=== PATIENT | female | born 1950 | race Caucasian/White ===

== ENCOUNTER 2018-06-01 05:25 | Day surgery (SDC) | payer MEDICARE, OTHER, SELFPAY ==
[2018-06-01] VITALS (9 sets, daily range): BP systolic 105–129; BP diastolic 53–81; PULSE 60–80; RESP 14–18; TEMP 36–36.8; O2SAT 92–100; BMI 31.2
--- NOTE | 2018-06-01 05:34 | EKG12_ITS ---
Test Reason : PRE OP Blood Pressure : / mmHG Vent. Rate : 081 BPM Atrial Rate : 081 BPM P-R Int : 144 ms QRS Dur : 084 ms QT Int : 364 ms P-R-T Axes : 079 037 049 degrees QTc Int : 422 ms Normal sinus rhythm Normal ECG Confirmed by MALIK VILLELA, LOUISE ([id number]), editor magazine ARETHA CARROLL ([id number]) on 06/02/2018 2:33:16 PM Referred By: Tristan Carlson Confirmed By:LOUISE GAN MD
--- NOTE | 2018-06-01 07:15 | RAD_ITS ---
STUDY: X-RAY - LEFT CLAVICLE FLUOROSCOPY TIME (if supplied): (00: 19) minutes/seconds TECHNIQUE: Intraoperative fluoroscopy. 3 intraoperative views. COMPARISON: None. FINDINGS: Anatomic alignment at the fracture site. Normal acromioclavicular articulation. Normal visualized sternoclavicular articulation. Normal visualized pulmonary apex. RAD/Clavicle IMPRESSION: Internal fixation of left clavicle fracture in good alignment. Electronically Signed: Xenia Ch MD at 12:26 EDT Tel , Service support ,
[2018-06-01] MEDS: Cefazolin 2 GM in 0.9% Normal Saline 100 ML IV (07:25)
--- NOTE | 2018-06-01 08:43 | DCINST_ITS ---
Discharge Diet: No Restrictions Discharge Activity: May Not Drive May shower in (days): 1 Ice area for (Minutes): 20 - Ice area for 20 minutes each hour while awake Call your doctor if your incision/area has: Continuous Slow Oozing, Sudden Increased Bleeding, Increased Pain/ Swelling, Increased Redness, Foul Smelling Discharge Call your doctor if you observe: Fever of 101 or Higher, Coldness, Increased Pain, Numbness or Tingling, Change in Color Cleanse incision/area with: - - do not remove adherent dressing, may shower if it is sealed Allergies/Adverse Reactions: Allergies No Known Allergies Allergy (Verified 05/29/18 15:25) Medications to take at Discharge Cholecalciferol (Vitamin D3) [Vitamin D3] 1,000 unit PO DAILY 05/29/18 Cyanocobalamin [Vitamin B12] 250 mcg PO DAILY@0800 05/29/18 Meloxicam [Mobic] 7.5 mg PO DAILY 05/29/18 Multivitamin [Multiple Vitamins] 1 each PO DAILY 05/29/18 Naproxen Sodium [Aleve] 220 mg PO Q8H PRN PRN 05/29/18 Test Results: Test results from this visit will be discussed in further detail at your follow- up appointment, if applicable. Please Follow Up With: Tristan Carlson DO When: as scheduled
--- NOTE | 2018-06-01 08:43 | PCM.OPRPT ---
Report of Operation Date of Procedure: 06/01/18 Pre-Operative Diagnosis: Comminuted displaced left distal clavicle fracture Post-Operative Diagnosis: Same Surgery/Procedure Performed:: Open reduction with internal fixation of left distal clavicle fracture Description of Surgical Findings:: Displaced clavicle fracture poor bone quality distally humid system operator: Mikal Bullock Type of Anesthesia:: General Anesthesiologist: Jose Up Estimated Blood Loss (mL): 25 Fluids Replaced: See anesthesia report Description of Procedure: Implants: Arthrex distal clavicle plate with Arthrex distal clavicle tight rope Surgical indications: Patient is a 67-year-old female who suffered a displaced distal clavicle fracture. She has elected to undergo the above procedure at my recommendation. Please see history and physical Procedure description: Jody was greeted in the preoperative area. Her left upper tremor is marked with surgical marker. Preoperative antibiotics administered she was then taken a or Suite 1 the stable condition. After adequate anesthesia was obtained and airway secured she was placed in standard beachchair position all bony prominences were well-padded. Patient's arm was then prepped and draped in usual sterile fashion. Surgical times performed surgery was commenced. Biplanar fluoroscopic imaging was utilized in order to identify the fracture site. An incision was then planned and carried out the superior aspect of the clavicle. Dissection was then carried length of the incision exposing the clavicle. Patient had significant inferior displacement of the distal aspect as there is some disruption of the coracoclavicular ligaments. The fracture was developed and was identified to have a oblique type fracture with some comminution of the distal portion. I then provisionally placed a plate on the proximal aspect of the clavicle with a 3.5 mm bicortical screw and with some downward pressure was able to reduce this to the distal clavicle portion. Provisional fixation of the distal clavicle was then performed with a cancellus 3 mm screw. Using biplanar fluoroscopic imaging I then drilled through the plate and the proximal clavicle as well as bicortically through the coracoid in order to insert a clavicle tight rope. This engage the undersurface of the coracoid and then was able to essentially approximate the clavicle to the coracoid reconstructing or securing the coracoclavicular ligaments as well as assisting in maintaining the reduction. Once this was achieved I then placed a second bicortical screw in the proximal aspect of the clavicle followed by 4 locking screws in the distal clavicle. One additional screw was then placed in the proximal clavicle. Once this was complete irrigation was performed and final imaging was obtained. Very happy with the reduction as well as the security of the fracture. This point the wound was then closed in layers. A well-padded nonadherent dressing was then applied. Physician camp assistant was integral in all portions of this procedure. They assisted with positioning the patient, draping the extremity, holding retractors, closing the wound, and applying the dressing. This was all done under my direct supervision. The physician camp assistant was essential for a successful, efficient surgery. Postoperatively: We will allow gentle range of motion of the shoulder as tolerated below shoulder level. Aggressive range of motion to begin at 4 weeks as tolerated followed by isometrics and progressive resistance exercises between 6 and 8 weeks - Complications None known - Admit VTE Documentation VTE Present on Admission: Yes VTE Mechan Device Prophylaxis: SCD's VTE Pharm Prophylaxis ordered?: No Reason prophylaxis not ordered:: Procedure Not Indicated
--- NOTE | 2018-06-01 08:50 | OP.PCM_ITS ---
Report of Operation Date of Procedure: 06/01/18 Pre-Operative Diagnosis: Comminuted displaced left distal clavicle fracture Post-Operative Diagnosis: Same Surgery/Procedure Performed:: Open reduction with internal fixation of left distal clavicle fracture Description of Surgical Findings:: Displaced clavicle fracture poor bone quality distally medical physiologist: Mikal Bullock Type of Anesthesia:: General Anesthesiologist: Jose Up Estimated Blood Loss (mL): 25 Fluids Replaced: See anesthesia report Description of Procedure: Implants: Arthrex distal clavicle plate with Arthrex distal clavicle tight rope Surgical indications: Patient is a 67-year-old female who suffered a displaced distal clavicle fracture. She has elected to undergo the above procedure at my recommendation. Please see history and physical Procedure description: Jody was greeted in the preoperative area. Her left upper tremor is marked with surgical marker. Preoperative antibiotics administered she was then taken a or Suite 1 the stable condition. After adequate anesthesia was obtained and airway secured she was placed in standard beachchair position all bony prominences were well-padded. Patient's arm was then prepped and draped in usual sterile fashion. Surgical times performed surgery was commenced. Biplanar fluoroscopic imaging was utilized in order to identify the fracture site. An incision was then planned and carried out the superior aspect of the clavicle. Dissection was then carried length of the incision exposing the clavicle. Patient had significant inferior displacement of the distal aspect as there is some disruption of the coracoclavicular ligaments. The fracture was developed and was identified to have a oblique type fracture with some comminution of the distal portion. I then provisionally placed a plate on the proximal aspect of the clavicle with a 3.5 mm bicortical screw and with some downward pressure was able to reduce this to the distal clavicle portion. Provisional fixation of the distal clavicle was then performed with a cancellus 3 mm screw. Using biplanar fluoroscopic imaging I then drilled through the plate and the proximal clavicle as well as bicortically through the coracoid in order to insert a clavicle tight rope. This engage the undersurface of the coracoid and then was able to essentially approximate the clavicle to the coracoid reconstructing or securing the coracoclavicular ligaments as well as assisting in maintaining the reduction. Once this was achieved I then placed a second bicortical screw in the proximal aspect of the clavicle followed by 4 locking screws in the distal clavicle. One additional screw was then placed in the proximal clavicle. Once this was complete irrigation was performed and final imaging was obtained. Very happy with the reduction as well as the security of the fracture. This point the wound was then closed in layers. A well-padded nonadherent dressing was then applied. Physician mobile unit assistant was integral in all portions of this procedure. They assisted with positioning the patient, draping the extremity, holding retractors , closing the wound, and applying the dressing. This was all done under my direct supervision. The physician mobile unit assistant was essential for a successful, efficient surgery. Postoperatively: We will allow gentle range of motion of the shoulder as tolerated below shoulder level. Aggressive range of motion to begin at 4 weeks as tolerated followed by isometrics and progressive resistance exercises between 6 and 8 weeks - Complications None known - Admit VTE Documentation VTE Present on Admission: Yes VTE Mechan Device Prophylaxis: SCD's VTE Pharm Prophylaxis ordered?: No Reason prophylaxis not ordered:: Procedure Not Indicated
== END 2018-06-01 12:21 | disposition home or self-care (01) ==
LOC: SDC 05:27 → AC 05:30
PROVIDERS: Family Provider Family Medicine; PCP Family Medicine; Visit Provider Orthopaedic Surgery
PROC: (CPT 29805; principal; 2018-06-01 06:55)
DX: S42.022A Displaced fracture of shaft of left clavicle, initial encounter for closed fracture (principal); S22.42XA Multiple fractures of ribs, left side, initial encounter for closed fracture; W10.9XXA Fall (on) (from) unspecified stairs and steps, initial encounter; Y93.9 Activity, unspecified; Y92.009 Unspecified place in unspecified non-institutional (private) residence as the place of occurrence of the external cause; Y99.9 Unspecified external cause status; E66.3 Overweight; Z68.30 Body mass index [BMI] 30.0-30.9, adult
CPT/HCPCS: 00450; 23515; 73000; 76000; 93005; C1713; J7120; J2405

== ENCOUNTER → 2020-04-25 | Outpatient (CLI) | payer MEDICARE, OTHER, SELFPAY ==
[2018-06-01 05:55] VITALS: BMI 31.2
--- NOTE | 2020-04-25 12:36 | RAD_ITS ---
STUDY: X-RAY - THORACIC SPINE REASON FOR EXAM: Female, 69 years old. Pain TECHNIQUE: AP and lateral view(s) of the thoracic spine were obtained. COMPARISON: None. FINDINGS: Normal kyphosis of the thoracic spine. There is no substantial scoliosis. There is demineralization of the thoracic spine with mild endplate spondylosis. There is multilevel disc space narrowing of the thoracic spine. The soft tissue structures are unremarkable. RAD/Thoracic Spine 2 Views IMPRESSION: Multilevel disc space narrowing and mild spondylosis. Electronically Signed: Matias Boateng, at 15:47 EDT , Service support ,
--- NOTE | 2020-04-25 12:36 | RAD_ITS ---
STUDY: X-RAY - LUMBAR SPINE REASON FOR EXAM: Female, 69 years old. Radiating low back pain TECHNIQUE: 6 view(s) of the lumbar spine were obtained. COMPARISON: None FINDINGS: Normal lumbar lordosis. There is a levoscoliosis of the lumbar spine. There is a normal alignment of the vertebrae in the lateral view. There is multilevel endplate spondylosis of the lumbar vertebrae. There is multi-level degenerative disc disease with multi-level disc space narrowing. There is no demonstrated fracture. The soft tissue structures are unremarkable. RAD/L/S Spine Min 4 Views IMPRESSION: Degenerative changes of the spine, as detailed above. Levoscoliosis Electronically Signed: Jose Fried MD at 16:48 EDT , Service support ,
[2020-04-25 15:14] LABS: Absolute Lymphocyte Count 1.27 X10^3/uL (0.83-4.51); Absolute Neutrophil Count 4.2 X10^3/uL (2.0-7.7); Basophil# 0.05 X10^3/uL; Basophil% 0.8 % (0-1); Eosinophil# 0.06 X10^3/uL; Hematocrit 40.9 % (37-47); Hemoglobin 13.3 g/dL (12.0-15.0); Lymphocyte # 1.27 X10^3/ul (4.0); Mean Corp Hgb Conc 32.5 g/dL (32-36); Mean Corpuscular Hgb 30.9 pg (27.0-32.0); Mean Corpuscular Volume 95.1 fL (81-99); Mean Platelet Vol. 12.5 fl (6.2-12.0); Monocyte# 0.46 X10^3/uL; Monocyte% 7.6 % (0-10); NRBC Flagged by Analyzer 0 % (0-5); Neutrophil # 4.18 X10^3/uL (2.7-7.7); Neutrophil % 69.3 % (47-70); Platelet Count 251 K/mm3 (150-450); RBC Distribution Width CV 11.9 % (11.6-14.6); RBC Distribution Width SD 41.2 fl (35.1-43.9)
[2020-04-25 15:27] LABS: ALB/GLOB Ratio 0.9 RATIO (0.9-2.4); AST(SGOT) 16 U/L (15-37); Alanine Aminotransfer ALT/SGPT 20 U/L (13-56); Albumin, Serum 3.5 g/dL (3.2-5.0); Alkaline Phosphatase 92 U/L (45-117); Anion Gap 6 (5-15); BUN 15 mg/dL (7-18); BUN/Creat Ratio 20.6 RATIO (10-20); Calcium,Total 9.4 mg/dL (8.5-10.1); Chloride 107 mmol/L (98-107); Creatinine, Serum 0.73 mg/dL (0.55-1.02); EST Glomerular Filtration Rate 85 mL/min (>60); Est Glom Filt Rate - Afr Amer 102 mL/min (>60); Globulin 3.8 g/dL (2.2-4.2); Glucose 92 mg/dL (74-106); Potassium 3.8 mmol/L (3.5-5.1); Protein, Total 7.3 g/dL (6.4-8.2); Sodium Level 142 mmol/L (136-145)
[2020-04-25 15:44] LABS: Erythrocyte Sedimentation Rate 8 mm/hr (0-30)
== END | disposition home or self-care (01) ==
LOC: MTLAB 12:35
PROVIDERS: PCP Family Medicine; Referring Provider Family Medicine; Visit Provider Family Medicine
DX: M54.9 Dorsalgia, unspecified (principal); R10.9 Unspecified abdominal pain
CPT/HCPCS: 36415; 72070; 72110; 80053; 85025; 85652

== ENCOUNTER → 2020-06-19 17:18 | Outpatient (CLI) | payer MEDICARE, OTHER, SELFPAY ==
[2018-06-01 05:55] VITALS: BMI 31.2
--- NOTE | 2020-06-19 17:20 | RAD_ITS ---
STUDY: X-RAY - RIGHT KNEE REASON FOR EXAM: Female, 69 years old. KNEE PAIN, NO INJURY TECHNIQUE: 4 view(s) of the knee. COMPARISON: None. FINDINGS: Normal visualized distal femur. Normal visualized proximal fibula. Questionable old fractures involving the tibial spines. Normal proximal tibiofibular articulation. Normal medial femorotibial compartment. Spurring at the lateral femorotibial compartment with an ossific density laterally possibly related to the meniscus.. Mild spurring and narrowing at the patellofemoral articulation. The soft tissue structures are unremarkable. RAD/Knee 4 or More Views IMPRESSION: Mild degenerative changes of the knee. Electronically Signed: Aj Olivas DO at 23:56 EDT Tel [phone], Service support ,
== END ==
PROVIDERS: PCP Family Medicine; Referring Provider Family Medicine; Visit Provider Family Medicine
DX: M25.561 Pain in right knee (principal)
CPT/HCPCS: 73564

== ENCOUNTER → 2020-06-20 10:50 | Outpatient (CLI) | payer MEDICARE, OTHER, SELFPAY ==
--- NOTE | 2020-06-20 10:54 | VDLE_ITS ---
Reason For Study: knee pain RIGHT GSV is normal. CFV is compressible, spontaneous, phasic, competent and demonstrates normal augmentation. FV is compressible, spontaneous, phasic, competent and demonstrates normal augmentation. POP V is compressible, spontaneous, phasic, competent and demonstrates normal augmentation. T/P Trunk is compressible. PTV is compressible. RT PerV is compressible. Procedure Exam performed in department. The exam was abbreviated due to the COVID 19 protocol. The exam was diagnostic. A preliminary report was called and/or faxed to Dr. Parks. Interpretation Summary Deep veins of the right lower extremity are patent and compressible segmentally. There is no evidence of right lower extremity deep vein thrombosis. Valvular competence appears intact within the proximal deep venous system on the right . The right great saphenous vein appears patent and compressible segmentally. Ordering Physician: Kervin Parks Performed By: Len Miranda RVT
== END ==
PROVIDERS: PCP Family Medicine; Referring Provider Family Medicine; Visit Provider Family Medicine
DX: M79.89 Other specified soft tissue disorders (principal); M25.561 Pain in right knee
CPT/HCPCS: 93971

== ENCOUNTER → 2020-06-21 | Outpatient (CLI) | payer MEDICARE, OTHER, SELFPAY ==
[2018-06-01 05:55] VITALS: BMI 31.2
== END | disposition home or self-care (01) ==
LOC: LABSPEC 16:10
PROVIDERS: PCP Family Medicine; Referring Provider Family Medicine; Visit Provider Family Medicine
DX: Z71.89 Other specified counseling (principal)
CPT/HCPCS: 87635; U0003

== ENCOUNTER → 2020-08-29 | Outpatient (CLI) | payer MEDICARE, OTHER, SELFPAY ==
[2018-06-01 05:55] VITALS: BMI 31.2
[2020-08-29 09:56] LABS: Hematocrit 39.4 % (37-47); Hemoglobin 12.4 g/dL (12.0-15.0); Mean Corp Hgb Conc 31.5 g/dL (32-36); Mean Corpuscular Hgb 30.1 pg (27.0-32.0); Mean Corpuscular Volume 95.6 fL (81-99); Mean Platelet Vol. 11.8 fl (6.2-12.0); Platelet Count 244 K/mm3 (150-450); RBC Distribution Width CV 12.1 % (11.6-14.6); RBC Distribution Width SD 42.5 fl (35.1-43.9); Red Blood Count 4.12 M/mm3 (4.2-5.4); White Blood Count 5.2 K/mm3 (4.4-11.0)
[2020-08-29 10:21] LABS: Vitamin D,25 Hydroxy 28.4 ng/mL
[2020-08-29 10:55] LABS: Anion Gap 6 (5-15); BUN 19 mg/dL (7-18); BUN/Creat Ratio 26.5 RATIO (10-20); Chloride 107 mmol/L (98-107); Cholesterol 234 mg/dL (200); Creatinine, Serum 0.72 mg/dL (0.55-1.02); EST Glomerular Filtration Rate 86 mL/min (>60); Est Glom Filt Rate - Afr Amer 104 mL/min (>60); Glucose 95 mg/dL (74-106); High Density Lipoprotein 65 mg/dL; Sodium Level 142 mmol/L (136-145); Thyroid Stim Hormone (TSH) 3.08 uIU/mL (0.358-3.74); Triglycerides 74 mg/dL; Very Low Density Lipoprotein 15 mg/dL (5-40)
== END | disposition home or self-care (01) ==
PROVIDERS: PCP Family Medicine; Referring Provider Family Medicine; Visit Provider Family Medicine
DX: E78.5 Hyperlipidemia, unspecified (principal); M81.0 Age-related osteoporosis without current pathological fracture
CPT/HCPCS: 36415; 80048; 80061; 82306; 84443; 85027

== ENCOUNTER → 2020-09-07 | Outpatient (CLI) | payer MEDICARE, OTHER, SELFPAY ==
[2018-06-01 05:55] VITALS: BMI 31.2
== END | disposition home or self-care (01) ==
LOC: LABSPEC 11:13
PROVIDERS: PCP Family Medicine; Referring Provider Family Medicine; Visit Provider Family Medicine
DX: Z71.89 Other specified counseling (principal)
CPT/HCPCS: 87635; U0003

== ENCOUNTER 2021-01-03 11:24 | Outpatient (RCR) | payer MEDICARE, OTHER, SELFPAY ==
[2018-06-01 05:55] VITALS: BMI 31.2
== END 2021-01-03 23:59 ==
LOC: IMMUN 11:24
PROVIDERS: PCP Family Medicine; Referring Provider Family Medicine; Visit Provider Family Medicine
DX: Z23 Encounter for immunization (principal)
CPT/HCPCS: 0011A; 0012A; 91301

== ENCOUNTER → 2021-03-14 13:51 | Outpatient (CLI) | payer MEDICARE, OTHER, SELFPAY ==
[2018-06-01 05:55] VITALS: BMI 31.2
[2021-03-14 15:06] LABS: Absolute Lymphocyte Count 1.46 X10^3/uL (0.83-4.51); Absolute Neutrophil Count 3.3 X10^3/uL (2.0-7.7); Basophil# 0.05 X10^3/uL; Basophil% 0.9 % (0-1); Eosinophil# 0.09 X10^3/uL; Eosinophils% 1.7 % (0-5); Hematocrit 40.1 % (37-47); Hemoglobin 12.7 g/dL (12.0-15.0); Lymphocyte # 1.46 X10^3/ul (0.83-4.51); Lymphocyte % 27.4 % (19-41); Mean Corp Hgb Conc 31.7 g/dL (32-36); Mean Corpuscular Hgb 29.7 pg (27.0-32.0); Mean Corpuscular Volume 93.7 fL (81-99); Mean Platelet Vol. 11.8 fl (6.2-12.0); Monocyte# 0.39 X10^3/uL; Monocyte% 7.3 % (0-10); NRBC Flagged by Analyzer 0 % (0-5); Neutrophil # 3.32 X10^3/uL (2.7-7.7); Neutrophil % 62.3 % (47-70); Platelet Count 247 K/mm3 (150-450); RBC Distribution Width CV 11.9 % (11.6-14.6); RBC Distribution Width SD 41.2 fl (35.1-43.9); Red Blood Count 4.28 M/mm3 (4.2-5.4); White Blood Count 5.3 K/mm3 (4.4-11.0)
[2021-03-14 15:31] LABS: ALB/GLOB Ratio 1.1 RATIO (0.9-2.4); AST(SGOT) 19 U/L (15-37); Alanine Aminotransfer ALT/SGPT 24 U/L (13-56); Albumin, Serum 3.7 g/dL (3.2-5.0); Alkaline Phosphatase 82 U/L (45-117); Anion Gap 5 (5-15); BUN 17 mg/dL (7-18); Calcium,Total 9.1 mg/dL (8.5-10.1); Chloride 107 mmol/L (98-107); Color, Urine Yellow (Yellow); Creatinine, Serum 0.85 mg/dL (0.55-1.02); EST Glomerular Filtration Rate 70 mL/min (>60); Est Glom Filt Rate - Afr Amer 85 mL/min (>60); Globulin 3.4 g/dL (2.2-4.2); Glucose 110 mg/dL (74-106); Glucose, Dipstick Normal (Normal); Ketone-Dipstick Negative (Negative); Leukocyte Esterase-Dipstick 25 /ul (Negative); Nitrite-Dipstick Negative (Negative); Occult Blood-Urine Negative /ul (Negative); Potassium 3.8 mmol/L (3.5-5.1); Protein, Total 7.1 g/dL (6.4-8.2); Protein-Dipstick Negative (Negative); Sodium Level 141 mmol/L (136-145); Urine Bilirubin Dipstick Negative (Negative); Urine Clarity Clear (Clear); Urine Urobilinogen 1 mg/dl (Normal)
== END ==
PROVIDERS: PCP Family Medicine; Referring Provider Family Medicine; Visit Provider Family Medicine
DX: M06.9 Rheumatoid arthritis, unspecified (principal)
CPT/HCPCS: 36415; 80053; 81002; 85025

== ENCOUNTER 2022-05-03 23:23 | Emergency (ER) | payer MEDICARE, OTHER, SELFPAY ==
[2022-05-03 23:25] VITALS: BP 122/80; PULSE 83; RESP 14; TEMP 36.8; O2SAT 100; BMI 31.2
--- NOTE | 2022-05-03 23:48 | RAD_ITS ---
EXAM: XR RIGHT SHOULDER COMPLETE, 2 OR MORE VIEWS CLINICAL INDICATION: pain TECHNIQUE: Two or more views of the right shoulder. This report was created using [employer] report generation technology. COMPARISON: None. FINDINGS: BONES/JOINTS: Minimally displaced right distal clavicle fracture. Preservation of the joint space. No sclerotic or destructive changes observed. SOFT TISSUES: Unremarkable. No soft tissue swelling or gas. No radiopaque foreign body. RAD/Shoulder min 2 Views IMPRESSION: Minimally displaced right distal clavicle fracture. Electronically Signed: Enrrique Mendosa MD at 0:36 EDT ,
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
--- NOTE | 2022-05-03 23:50 | RAD_ITS ---
INDICATION: pain EXAMINATION/TECHNIQUE: X-RAY - XR Ribs Unilateral W/ PA Chest Min 3 Views AP chest with 4 view right rib seriesw COMPARISON: Right shoulder radiograph on same day. FINDINGS: SOFT TISSUES: No soft tissue swelling or gas. BONES: Mildly displaced fracture of the distal right clavicle approximately 1.6 cm from the acromioclavicular joint. No displaced rib fractures seen. Sequela of old left mid rib fractures. Prior left lateral clavicle internal fixation. Lumbar levocurvature. No aggressive osseous lesion. VISUALIZED LUNGS: Clear. No pneumothorax. RAD/Ribs Uni Min 3V w/PA Chest IMPRESSION: Mildly displaced right distal clavicle fracture. No displaced rib fracture or pneumothorax. Electronically Signed: Malachi Veloz MD at 0:48 EDT ,
[2022-05-04] MEDS: Lidocaine 5% Patch 1 PATCH TOPICAL (00:06)
[2022-05-04 01:02] VITALS: BP 130/82; PULSE 78; RESP 17; TEMP 36.8; O2SAT 99
[2022-05-04] MEDS: Silver Sulfadiazine 1% Crm 50 gm Bottle 1 APPLIC TOPICAL (01:06)
== END 2022-05-04 01:07 | disposition home or self-care (01) ==
PROVIDERS: Emergency Provider Student in an Organized Health Care Education/Training Program; PCP Family Medicine; Visit Provider Student in an Organized Health Care Education/Training Program
DX: S42.009A Fracture of unspecified part of unspecified clavicle, initial encounter for closed fracture (principal); S20.211A Contusion of right front wall of thorax, initial encounter; T24.202A Burn of second degree of unspecified site of left lower limb, except ankle and foot, initial encounter; W10.9XXA Fall (on) (from) unspecified stairs and steps, initial encounter
CPT/HCPCS: 71101; 73030; 99284

== ENCOUNTER → 2023-05-02 | Outpatient (CLI) | payer MEDICARE, OTHER, SELFPAY | END | disposition home or self-care (01) | LOC: BFHLAB 10:26 | PROVIDERS: PCP Family Medicine; Visit Provider Family Medicine | DX: R30.0 Dysuria (principal) | CPT/HCPCS: 87077; 87086; 87088; 87186 ==

== ENCOUNTER → 2024-05-01 | Outpatient (CLI) | payer MEDICARE, OTHER, SELFPAY ==
--- NOTE | 2024-05-01 07:41 | US_ITS ---
PROCEDURE: RENAL ULTRASOUND - COMPLETE REASON FOR EXAM: Female, 73 years old. Renal cyst TECHNIQUE: Ultrasound evaluation of the bilateral kidneys was performed with real-time ultrasonography and static grayscale imaging. COMPARISON: None. FINDINGS: RIGHT KIDNEY: Normal location of the right kidney which is normal in size. The right kidney measures 9.7 x 4.5 x 4.4 cm. There is a normal cortex of the right kidney. The renal cortex measures 1 cm. There is no right renal mass or cyst. There are no right renal calculi. There is mild hydronephrosis of the right kidney. DISTAL RIGHT URETER: There is non-visualization of the distal right ureter. There is no demonstrated right ureterovesical junction calculus. There is no demonstrated right ureteral jet. LEFT KIDNEY: Normal location of the left kidney which is normal in size. The left kidney measures 9.3 x 4.2 x 4.1 cm. There is a normal cortex of the left kidney. The renal cortex measures 1.1 cm. There is no left renal mass or cyst. There are no left renal calculi. There is mild hydronephrosis of the left kidney. DISTAL LEFT URETER: There is non-visualization of the distal left ureter. There is no demonstrated left ureterovesical junction calculus. There is no demonstrated left ureteral jet. BLADDER: The distended urinary bladder has a volume of 12.3 ml. The bladder is not well distended. US/Kidney and Bladder IMPRESSION: Mild bilateral hydronephrosis. Electronically Signed: Edson Lucas MD at 14:41 EDT ,
== END | disposition home or self-care (01) ==
LOC: US 07:39
PROVIDERS: PCP Family Medicine; Referring Provider Family Medicine; Visit Provider Family Medicine
DX: N28.1 Cyst of kidney, acquired (principal)
CPT/HCPCS: 76770

== ENCOUNTER → 2024-05-21 | Outpatient (CLI) | payer MEDICARE, OTHER, SELFPAY ==
[2024-05-21 12:27] LABS: Absolute Lymphocyte Count 1.22 X10^3/uL (0.83-4.51); Absolute Neutrophil Count 3.7 X10^3/uL (2.0-7.7); Basophil# 0.06 X10^3/uL; Basophil% 1.1 % (0-1); Eosinophils% 1.8 % (0-5); Hematocrit 41.5 % (37-47); Hemoglobin 13.2 g/dL (12.0-15.0); Lymphocyte # 1.22 X10^3/ul (0.83-4.51); Lymphocyte % 22.1 % (19-41); Mean Corp Hgb Conc 31.8 g/dL (32-36); Mean Corpuscular Hgb 30.3 pg (27.0-32.0); Mean Corpuscular Volume 95.2 fL (81-99); Mean Platelet Vol. 12.3 fl (6.2-12.0); Monocyte# 0.42 X10^3/uL; Monocyte% 7.6 % (0-10); NRBC Flagged by Analyzer 0 % (0-5); Neutrophil # 3.69 X10^3/uL (2.7-7.7); Platelet Count 241 K/mm3 (150-450); RBC Distribution Width CV 12.2 % (11.6-14.6); RBC Distribution Width SD 42.6 fl (35.1-43.9); Red Blood Count 4.36 M/mm3 (4.2-5.4); White Blood Count 5.5 K/mm3 (4.4-11.0)
[2024-05-21 12:53] LABS: Vitamin D,25 Hydroxy 43.9 ng/mL
[2024-05-21 12:59] LABS: ALB/GLOB Ratio 1.1 RATIO (0.9-2.4); AST(SGOT) 20 U/L (15-37); Alanine Aminotransfer ALT/SGPT 21 U/L (13-56); Albumin, Serum 3.5 g/dL (3.2-5.0); Alkaline Phosphatase 80 U/L (45-117); Anion Gap 6 (5-15); BUN 16 mg/dL (7-18); BUN/Creat Ratio 19.3 RATIO (10-20); Calcium,Total 9.2 mg/dL (8.5-10.1); Chloride 108 mmol/L (98-107); Creatinine, Serum 0.83 mg/dL (0.55-1.02); EST Glomerular Filtration Rate 72 mL/min (>60); Est Glom Filt Rate - Afr Amer 87 mL/min (>60); Globulin 3.1 g/dL (2.2-4.2); Glucose 97 mg/dL (74-106); Potassium 3.8 mmol/L (3.5-5.1); Protein, Total 6.6 g/dL (6.4-8.2); Sodium Level 140 mmol/L (136-145)
== END | disposition home or self-care (01) ==
PROVIDERS: PCP Family Medicine; Referring Provider Family Medicine; Visit Provider Family Medicine
DX: M06.9 Rheumatoid arthritis, unspecified (principal); M81.0 Age-related osteoporosis without current pathological fracture
CPT/HCPCS: 36415; 80053; 82306; 85025

== ENCOUNTER → 2024-06-04 | Outpatient (CLI) | payer MEDICARE, OTHER, SELFPAY ==
--- NOTE | 2024-06-04 08:23 | BI_ITS ---
MAMMOGRAPHY - BILATERAL SCREENING REASON FOR EXAM: Female, 73 years old. Routine annual screening examination. PERTINENT HISTORY: Non-contributory. TECHNIQUE: Digital bilateral breast radha (3D mammographic acquisition) in the CC and MLO projections. 2-D mediolateral oblique (MLO) and craniocaudad (CC) views of both breasts were obtained. CAD: Full Field Digital Mammography with Computer Added Detection was performed. COMPARISON: Comparison is made with prior outside examination of May 08, 2023. FINDINGS: Breast Composition: There are scattered areas of fibroglandular density. There are no dominant masses or suspicious calcifications. Stable asymmetry of breast tissue with more breast tissue is seen in the upper outer quadrant of the left breast as compared to the right side. No other significant abnormalities are identified. There has been no significant change since the prior study. BI/SCRN MAMM (CAD)W/RADHA BILAT IMPRESSION: Stable bilateral screening mammogram. Yearly follow-up mammogram recommended. (A) ASSESSMENT CATEGORY: BIRADS Category 2: Benign. A letter regarding these results will be sent to the patient by the facility within 30 days. Approximately 10% of breast cancers are not detected by mammography. A normal mammogram should not delay biopsy of a clinically suspicious abnormality. [id number] Electronically Signed: Matias Boateng MD at 13:13 EDT ,
== END | disposition home or self-care (01) ==
LOC: OPBI 08:22
PROVIDERS: PCP Family Medicine; Referring Provider Family Medicine; Visit Provider Family Medicine
DX: Z12.31 Encounter for screening mammogram for malignant neoplasm of breast (principal)
CPT/HCPCS: 77063; 77067

== ENCOUNTER → 2024-06-18 | Outpatient (CLI) | payer MEDICARE, OTHER, SELFPAY | END | disposition home or self-care (01) | LOC: LABSPEC 16:14 | PROVIDERS: PCP Family Medicine; Referring Provider Family Medicine; Visit Provider Family Medicine | DX: R30.0 Dysuria (principal) | CPT/HCPCS: 87086; 87088 ==

== ENCOUNTER 2024-07-07 05:09 | Emergency (ER) | payer MEDICARE, OTHER, SELFPAY ==
[2024-07-07 05:10] VITALS: BP 110/97; PULSE 72; RESP 18; TEMP 36.9; O2SAT 98; BMI 31.0
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
[2024-07-07] MEDS: Morphine 4 MG/ML Syringe IV (06:00)
[2024-07-07] MEDS: Ondansetron 4 MG/2 ML Vial IV (06:00)
[2024-07-07 06:34] LABS: Absolute Lymphocyte Count 0.78 X10^3/uL (0.83-4.51); Absolute Neutrophil Count 6.8 X10^3/uL (2.0-7.7); Basophil# 0.04 X10^3/uL; Basophil% 0.5 % (0-1); Eosinophil# 0.02 X10^3/uL; Eosinophils% 0.2 % (0-5); Hematocrit 35.1 % (37-47); Hemoglobin 11.4 g/dL (12.0-15.0); Lymphocyte # 0.78 X10^3/ul (0.83-4.51); Lymphocyte % 9.3 % (19-41); Mean Corp Hgb Conc 32.5 g/dL (32-36); Mean Corpuscular Volume 95.4 fL (81-99); Monocyte# 0.64 X10^3/uL; Monocyte% 7.7 % (0-10); NRBC Flagged by Analyzer 0 % (0-5); Neutrophil # 6.84 X10^3/uL (2.7-7.7); Neutrophil % 81.9 % (47-70); Platelet Count 162 K/mm3 (150-450); RBC Distribution Width SD 41.6 fl (35.1-43.9); Red Blood Count 3.68 M/mm3 (4.2-5.4); White Blood Count 8.4 K/mm3 (4.4-11.0)
[2024-07-07 06:56] LABS: ALB/GLOB Ratio 1.2 RATIO (0.9-2.4); AST(SGOT) 19 U/L (15-37); Alanine Aminotransfer ALT/SGPT 17 U/L (13-56); Alkaline Phosphatase 70 U/L (45-117); Anion Gap 8 (5-15); BUN 15 mg/dL (7-18); BUN/Creat Ratio 20.9 RATIO (10-20); Calcium,Total 8.5 mg/dL (8.5-10.1); Chloride 105 mmol/L (98-107); Creatinine, Serum 0.72 mg/dL (0.55-1.02); EST Glomerular Filtration Rate 85 mL/min (>60); Est Glom Filt Rate - Afr Amer 103 mL/min (>60); Estimated Creatinine Clearance 66.85 ml/min; Globulin 2.6 g/dL (2.2-4.2); Glucose 118 mg/dL (74-106); Lipase 12 U/L (13-75); Potassium 3.8 mmol/L (3.5-5.1); Protein, Total 5.6 g/dL (6.4-8.2); Sodium Level 135 mmol/L (136-145)
[2024-07-07 07:09] VITALS: BP 112/86; PULSE 74; RESP 16; O2SAT 98
[2024-07-07 09:00] VITALS: BP 115/84; PULSE 71; RESP 16; O2SAT 98
[2024-07-07 09:09] VITALS: BP 115/84; PULSE 71; RESP 16; TEMP 36.6; O2SAT 98
== END 2024-07-07 09:09 | disposition home or self-care (01) ==
PROVIDERS: Emergency Provider Emergency Medicine; PCP Family Medicine; Visit Provider Emergency Medicine
DX: R10.9 Unspecified abdominal pain (principal); R11.2 Nausea with vomiting, unspecified; M41.9 Scoliosis, unspecified; Z87.81 Personal history of (healed) traumatic fracture; V86.59XA Driver of other special all-terrain or other off-road motor vehicle injured in nontraffic accident, initial encounter
CPT/HCPCS: 71046; 74177; 80053; 83690; 85025; 96374; 96375; 99283; Q9967; A4216; J2405

== ENCOUNTER 2024-07-22 05:45 | Day surgery (SDC) | payer MEDICARE, OTHER, SELFPAY ==
[2024-07-22] VITALS (9 sets, daily range): BP systolic 84–128; BP diastolic 43–77; PULSE 53–63; RESP 16; TEMP 35.9–36.5; O2SAT 97–100; BMI 29.3
[2024-07-22] MEDS: Lactated Ringers 1,000 ML 15 ML IV (06:15)
--- NOTE | 2024-07-22 06:44 | PCM.PRE.AN2 ---
ASA Classification* ASA Classification ASA Classification: 2 Assessment & Plan Anesthesia* Anesthesia Assessment Anesthesia Assessment: Discussed sedation and/or anesthesia options, risks, benefits, and alternatives with patient/parents/legal guardian/POA. Questions invited. The patient/parents/legal guardian/POA seems to understand and agrees to proceed with anesthesia plan. Reviewed the physical assessment, medical history, allergy history and patient home medications list prior to surgery/procedure/anesthetic and documented any changes. Performed airway and anesthesia risk assessments. Anesthesia Type Anesthesia Type: General (see written pre anesthesia record for full assessment) Anesthesia Focused Assessment* Temperature: 97.7 F Pulse Rate: 61 Blood Pressure: 111/52 Respiratory Rate: 16 Pulse Ox: 100 Airway Assessment Mouth opens: >3 cm Mallampati Score: II Focused Labs Anesthesia Preop lab: CBC WBC 8.4 K/mm3 (4.4-11.0) 07/07/24 06:20 RBC 3.68 M/mm3 (4.2-5.4) L 07/07/24 06:20 Hgb 11.4 g/dL (12.0-15.0) L 07/07/24 06:20 Hct 35.1 % (37-47) L 07/07/24 06:20 Plt Count 162 K/mm3 (150-450) 07/07/24 06:20 CHEMISTRY Potassium 3.8 mmol/L (3.5-5.1) 07/07/24 06:20 Sodium 135 mmol/L (136-145) L 07/07/24 06:20 BUN 15 mg/dL (7-18) 07/07/24 06:20 Creatinine 0.72 mg/dL (0.55-1.02) 07/07/24 06:20 Glucose 118 mg/dL (74-106) H 07/07/24 06:20 TSH 3.08 uIU/mL (0.358-3.74) 08/29/20 08:22 COAG Pre-Assessment Diagnosis/Proposed Procedure Planned Operative Procedure(s): LUMBAR 1 KYPHOPLASTY Anesthesia History Anesthesia History - senior microsoft consultant: Anesthesia History - senior microsoft consultant Hx Hospitalization No 07/20/24 12:23 Any Problems With Anesthesia Yes: nausea 07/20/24 12:23 Cholinesterase deficiency No 07/20/24 12:23 You/Your Family Experience No 07/20/24 12:23 fever (hyperthermia) with Relationship Recent Exposure to Contagious No 07/22/24 06:15 Disease Does patient have nerve No 07/20/24 12:23 stimulator Patient instructed to have device shut off --Does patient have Pacemaker No 07/22/24 06:15 or ICD? When Was Last Pacemaker Check QUESTION #4 FULL TEXT: You/Your Family Experience fever (hyperthermia) with Anesthesia Last Oral Intake Last Oral intake: Last Oral Intake NPO since 04:30 07/22/24 06:15 Meds taken in AM with sips of Yes 07/22/24 06:15 water? Meds patient instructed to omeprazole 07/22/24 06:15 take am of surgery PONV PONV - senior microsoft consultant: PONV - senior microsoft consultant Female Yes 07/20/24 12:23 HX of Motion Sickness Yes 07/20/24 12:23 HX of N/V After Surgery Yes 07/20/24 12:23 Non-Smoker Yes 07/20/24 12:23 Duration of Surgery greater No 07/20/24 12:23 than 60 minutes Number of Risk Factors 4 07/20/24 12:23 PONV Score Severe Risk 07/20/24 12:23 Height & Weight Height & Weight: Anesthesia: Height & Weight Height 5 ft 5 in 07/22/24 06:15 Weight: 80 kg 07/22/24 06:15 Body Mass Index (BMI) 29.3 07/22/24 06:15 Respiratory Assessment Respiratory Assessment - senior microsoft consultant: Respiratory Tract Infection Hx - senior microsoft consultant Hx Respiratory Tract Infection No 07/20/24 12:23 STOP Sleep Apnea STOP Sleep Apnea - senior microsoft consultant: STOP Sleep Apnea - senior microsoft consultant Hx Hypertension No 07/20/24 12:23 Hx Sleep Apnea No 07/20/24 12:23 CPAP BIPAP Do you snore loudly (louder No 07/20/24 12:23 than talking or can be heard Do you often feel tired/ No 07/20/24 12:23 fatigued/ sleepy during daytime? Has anyone observed you stop No 07/20/24 12:23 breathing during sleep? STOP Results Negative 07/20/24 12:23 QUESTION #5 FULL TEXT : Do you snore loudly (louder than talking or can be heard through closed doors)? 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 Specify any problems Hx of Preganancy in last 3 No 07/20/24 12:23 Months Nurse Filling Out Transfusion VCHRISTIN 07/20/24 12:23 & Questions: Date: 07/20/24 07/20/24 12:23 Time: 12:24 07/20/24 12:23 Patient unable to answer at this time (ie. confused, unrespo /Reproduction History /Reproductive History - senior microsoft consultant: /Reproductive Hx- senior microsoft consultant Hx Now Gestational Age (in weeks): EDC: Hx Hx Para Hx Section SAB Active Medications Active Medications: Current Medications Generic Name Dose Route Start Last Admin Trade Name Freq PRN Reason Stop Dose Admin Clindamycin Phosphate 600 mg in 50 mls @ 100 mls/hr 07/22/24 07:30 Cleocin IV 07/22/24 07:59 PREOP ONE Lactated Ringer's 1,000 mls @ 15 mls/hr 07/22/24 06:15 07/22/24 06:15 IV 15 mls/hr .Q48H GABE Administration PFSH Medical History Wears hearing aid Wears glasses Post-menopausal History of steroid therapy Rheumatoid arthritis Arthritis Anemia Back pain Gastric reflux Non-smoker History of fracture of clavicle Home Medications ?Medication ?Instructions ?Recorded ?Last Taken ?Type cholecalciferol (vitamin D3) 25 1,000 unit PO DAILY 05/29/18 Unknown History mcg (1,000 unit) capsule (Vitamin D3) cyanocobalamin (vitamin B-12) 500 250 mcg PO DAILY@0800 05/29/18 Unknown History mcg tablet multivitamin (Multiple Vitamins 1 ea PO DAILY 05/29/18 Unknown History tablet) naproxen sodium 220 mg tablet 220 mg PO Q8H PRN PRN Pain 05/29/18 07/19/24 History (Aleve) hydroxychloroquine 200 mg tablet 200 mg PO BID 05/23/23 Unknown History (Plaquenil) loratadine 10 mg tablet 10 mg PO DAILY 05/23/23 Unknown History naproxen 500 mg tablet 500 mg PO DAILY 05/23/23 07/19/24 History tramadol 50 mg tablet 50 mg PO Q6H PRN pain 4 days #16 07/07/24 Unknown Rx tabs calcium carbonate 600 mg-vitamin 1 tab PO DAILY 07/20/24 Unknown History D3 5 mcg (200 unit) tablet (Calcium 600 + D(3)) omeprazole 20 mg capsule,delayed 20 mg PO DAILY 07/20/24 07/22/24 04:30 History release Allergy/AdvReac Type Severity Reaction Status Date / Time Sulfa (Sulfonamide Allergy Intermediate Nausea/Vom/ Verified 07/22/24 06:25 Antibiotics) Diarrhea amoxicillin Allergy Nausea/Vom/ Verified 07/22/24 06:25 Diarrhea Family History Father Heart disease Grandfather Heart disease Grandmother Heart disease Surgical History Hx of foot surgery Social History Smoking Status: Never smoker alcohol intake: never substance use type: does not use Review of Systems (Anesthesia) ROS Narrative System reviewed and no additional complaints, except as documented.
--- NOTE | 2024-07-22 07:15 | OP.PCM_ITS ---
Problems Associated Problem List Diagnoses (1) Lumbar compression fracture: Report of Operation Date of Procedure: 07/22/24 Pre-Operative Diagnosis: L1 compression fracture Post-Operative Diagnosis: L1 compression fracture Surgery/Procedure Performed:: 1. L1 bone biopsy 2. L1 kyphoplasty Description of Surgical Findings:: The patient is a 73-year-old female with intractable back pain. Image studies confirm the above diagnosis. They have failed to respond to conservative treatment and have opted for operative intervention understanding the risk to include but not limited to infection, bleeding, damage to nerves arteries and veins, possibility of spinal fluid leak, paralysis, continued pain, need for further surgery, pulmonary embolism, heart attack, risk of stroke or The patient was identified in the preoperative holding area. There they received preoperative IV antibiotics and were then transferred to the operative suite. Once in the operative suite after the appropriate amount of sedation was given by anesthesia, the patient was transferred to the prone position on the operating table. All bony prominences were padded accordingly. The back was prepped and draped in the usual sterile fashion. Using biplanar fluoroscopic guidance the L1 vertebral body were brought into alignment for placement of the trocar. A transpedicular approach was selected to optimize the view of the pedicles. A small skin iglesia was made and a trocar was inserted and advanced under fluoroscopy with the tip of the needle in the upper outer quadrant of the pedicles of L1 bilaterally. At no time was there violation of the medial cortex of the pedicles at L1. The position of the trocar was intermittently checked under biplanar fluoroscopy to confirm placement at all times. Once the tip of the trocar had advanced beyond the posterior margin of the vertebral body further advancement was conducted in the lateral view. The trocar was advanced until the tip was at the junction of the anterior one third and middle one third of the vertebral body. The obturator was then removed. A biopsy was then taken. Then a small drill was used to drill a guide path for placement of the balloon system. Drilling was performed in a continuous motion under biplanar fluoroscopy. Under lateral fluoroscopic image the drilling was continued until the tip of the drill reached the anterior one third of the vertebral body. The drill was removed and the balloon system was inserted until the radiologic markers were located at the midpoint of the vertebral body. Balloon inflation w as then performed under active fluoroscopy in the lateral position with inflation pressures never exceeding 300 PSI. Inflation continued until a void of 5 to 7 cc was created. The balloon was collapsed and removed. PMMA cement was then mixed and delivered using a cannula. Cement injection was performed under active fluoroscopy with precement lateral x-ray used as a comparison. Cement injection continued until the cement had reached the posterior one third of the vertebral body and then injection was stopped. The cannulae were removed and replaced by the original obturator. Approximately 4 cc of cement was used per level. No extravasation of cement or leakage of cement posteriorly was noted. In the AP view good cement spread was noted across both sides of the vertebral body. The trocars were then removed under active fluoroscopy ensuring there was no retrograde spread of the cement. Pressure was held over the incision sites until active bleeding was stopped. The skin was then closed with Steri-Strips. Sterile dressings were applied with 4 x 4's ABD and tape. Sponge instrument and needle counts were correct at the end of the case. The patient was taken to the PACU without incident. Surgeon: Chuck Smith Type of Anesthesia: Local and MAC Estimated Blood Loss (mL): 5 cc Fluids Replaced: 600 cc Grafts/Implants Used: [place] Complications None
--- NOTE | 2024-07-22 07:30 | BON_PTH ---
PATIENT: KAL GILMORE LOC: [facility] [place] U#:[id number] AGE/SX: 73/F ROOM: RE07/22/[address]: Dr. Chuck Smith DO : 1950 BED: DIS: 07/22/2024 SPEC #: [id number] RECD: 07/22/24 08:48 STATUS: AIRAM REHugh #: [id number] LUIS ARMANDO: 07/22/24 07:[address]: Chuck Smith DEPT: SURGICAL PATHOLOGY RECD BY: Piter De Los Santos ENTERED: 07/22/24 10:05 SP TYPE: Bone OTHR DR: Dr. Martha Jones MD Tissues: Vertebra, NOS Procedures: Decalcification bone/plaque Surgery Specimen Level IV HEADER OPERATION: Kyphoplasty, L1 PRE-OP DIAGNOSIS: Low back pain TISSUE SUBMITTED: Lumbar 1 vertebral body bone MICROSCOPIC DIAGNOSIS Lumbar 1 vertebral body bone, core biopsy: A piece of bone with reactive changes and blood clots. Negative for malignancy. See comment. STEPHEN/ 07/23/2024 COMMENT Trilineage hematopoiesis is noted. Clinical correlation and appropriate follow up are necessary. MICROSCOPIC DESCRIPTION Slides are reviewed. GROSS DESCRIPTION Received in fixative is one container labeled with the patient's name and designated Lumbar 1 vertebral body bone. The specimen consists of an elongated piece of bone measuring 1.0cm in length and 0.2cm in diameter. Multiple fragments of blood clots are also noted measuring 1.0 x 0.3 x 0.1cm. The entire specimen is submitted in one cassette after decalcification. STEPHENBarry 07/22/2024 TC:5 CPT:[id number]
--- NOTE | 2024-07-22 07:35 | RAD_ITS ---
STUDY: KYPHOPLASTY OF THE L1 VERTEBRAE. REASON FOR EXAM: Female, 73 years old. FX L1 FLUOROSCOPY TIME (if supplied): ( 1 minute ) minutes/seconds. 13.27 mGy. 2 images were submitted. TECHNIQUE: Fluoroscopic services provided for kyphoplasty of the L1 vertebrae. COMPARISON: None. FINDINGS: Fluoroscopic services provided for kyphoplasty of the L1 vertebrae. RAD/Lumbar Spine 2 or 3 Views IMPRESSION: Fluoroscopic services provided for kyphoplasty of the L1 vertebrae. Electronically Signed: Matias Boateng MD at 12:01 EDT ,
[2024-07-22] MEDS: Clindamycin 600 MG/50 ML BAG 100 MG IV (07:42)
[2024-07-22] MEDS: Lidocaine 1% (30 ml sdv) 30 ML Vial (08:17)
--- NOTE | 2024-07-22 08:33 | PCM.POST.ANE ---
Anesthesia: Postop Eval I Current Vital Signs Temperature: 96.7 F Pulse Rate: 58 Blood Pressure: 123/77 Respiratory Rate: 16 Pulse Ox: 100 Oxygen Delivery Method: Room Air Assessment Airway patent: Yes Spontaneous unlabored respirations: Yes Mental status: Awake and Calm nausea: No Vomiting: No Anesthesia Complication: No Fluid Hydration Crystalloid volume administer (ml): 600 Total IV fluid infused: 600 Progress Note Anesthesia document: Postop Eval 1 completed: Yes
[2024-07-22] MEDS: HYDROcodone Bitartrate/Apap 5/325 Tablet PO (09:25)
--- NOTE | 2024-07-22 12:14 | PCM.POSTANE2 ---
Anesthesia Postop Eval I Sum Postop Eval Completion status Anesthesia document: Postop Eval 1 completed: Yes Anesthesia Postop Eval I Summary Anesthesia Postop Eval I Summary: Anesthesia Postop Eval I: Assessment Summary Airway patent Yes 07/22/24 08:36 Spontaneous unlabored Yes 07/22/24 08:36 respirations Mental status Awake,Calm 07/22/24 08:36 nausea No 07/22/24 08:36 Vomiting No 07/22/24 08:36 Anesthesia Postop Eval I: Fluid Summary Crystalloid volume administer 600 07/22/24 08:36 (ml) Colloids volume administered ( ml) Blood Product volume administered (ml) Total IV fluid infused 600 07/22/24 08:36 Anesthesia Postop Eval I: Summary Notes Anesthesia Complication No 07/22/24 08:36 Anesthesia Complication Comment: Post-operative progress note Anesthesia: Postop Eval II Evaluation Mental status: Awake Pain Level: 0 nausea: No Vomiting: No
== END 2024-07-22 10:28 | disposition home or self-care (01) ==
LOC: SDC 05:45 → AC 05:46
PROVIDERS: PCP Family Medicine; Referring Provider Orthopaedic Surgery; Visit Provider Orthopaedic Surgery
PROC: (CPT 22514; principal; 2024-07-22 07:15)
DX: S32.010A Wedge compression fracture of first lumbar vertebra, initial encounter for closed fracture (principal); M06.9 Rheumatoid arthritis, unspecified; K21.9 Gastro-esophageal reflux disease without esophagitis; M48.061 Spinal stenosis, lumbar region without neurogenic claudication; M47.896 Other spondylosis, lumbar region; M54.16 Radiculopathy, lumbar region; M51.36 Other intervertebral disc degeneration, lumbar region; M41.86 Other forms of scoliosis, lumbar region; M85.88 Other specified disorders of bone density and structure, other site; E66.3 Overweight; Z68.29 Body mass index [BMI] 29.0-29.9, adult; Z79.899 Other long term (current) drug therapy; X58.XXXA Exposure to other specified factors, initial encounter
CPT/HCPCS: 22514; 0200T; 01992; J7120; 72100; 76000; 88305; 88311; J2405

== ENCOUNTER → 2025-03-15 | Outpatient (CLI) | payer MEDICARE, OTHER, SELFPAY ==
--- NOTE | 2025-03-15 09:50 | RAD_ITS ---
PROCEDURE: THORACIC SPINE MIN 4 VIEWS 03/15/2025 REASON FOR EXAM: THORATIC SPINE PAIN TECHNIQUE: Five views of the thoracic spine. COMPARISON: Thoracic spine x-ray dated 04/25/2020. FINDINGS: Status post L1 vertebral augmentation. S shaped scoliosis of the spine is noted. Multilevel endplate changes are present. Vertebral heights appear grossly maintained on the AP view. If patient continues to experience back pain, consider MRI to rule out an occult fracture. Probable healed left-sided rib fractures are present., new since prior examination. RAD/Thoracic Spine Min 4 Views IMPRESSION: Status post L1 vertebral augmentation. S shaped scoliosis of the spine is noted. Multilevel endplate changes are pres ent. Vertebral heights appear grossly maintained on the AP view. If patient continues to experience back pain, consider MRI to rule out an occult fracture. Probable healed left-sided rib fractures are present., new since prior examinat ion. Reading Location: [facility]
== END | disposition home or self-care (01) ==
LOC: RAD 09:39
PROVIDERS: PCP Family Medicine; Referring Provider Clinical Nurse Specialist Adult Health; Visit Provider Clinical Nurse Specialist Adult Health
DX: M54.6 Pain in thoracic spine (principal)
CPT/HCPCS: 72074

== ENCOUNTER → 2025-06-24 | Outpatient (CLI) | payer MEDICARE, OTHER, SELFPAY ==
[2025-06-24 09:46] LABS: Hematocrit 41.6 % (37-47); Hemoglobin 13.8 g/dL (12.0-15.0); Immature Granulocytes Count 0.020 X10^3/uL (0.0-0.0); Mean Corp Hgb Conc 33.2 g/dL (32-36); Mean Corpuscular Volume 93.1 fL (81-99); Mean Platelet Vol. 12.6 fl (6.2-12.0); NRBC Flagged by Analyzer 0 % (0-5); Platelet Count 229 K/mm3 (150-450); RBC Distribution Width CV 12.0 % (11.6-14.6); RBC Distribution Width SD 40.9 fl (35.1-43.9); Red Blood Count 4.47 M/mm3 (4.2-5.4); White Blood Count 8.5 K/mm3 (4.4-11.0)
[2025-06-24 10:49] LABS: AST(SGOT) 22 U/L (<=31); Alanine Aminotransfer ALT/SGPT 19 U/L (<=34); Albumin, Serum 4.1 g/dL (3.4-4.8); Alkaline Phosphatase 87 U/L (35-104); Anion Gap 12 (5-15); BUN 16 mg/dL (4-19); BUN/Creat Ratio 24.5 RATIO (10-20); Calcium,Total 9.8 mg/dL (7.6-11.0); Carbon Dioxide 23.6 mmol/L (21.0-32.0); Chloride 106 mmol/L (98-108); Cholesterol 233 mg/dL (<=200); Globulin 2.6 g/dL (2.2-4.2); Glucose 102 mg/dL (70-99); Low Density Lipoprotein Calc. 144 mg/dL; Potassium 4.4 mmol/L (3.3-5.1); Triglycerides 99 mg/dL; Very Low Density Lipoprotein 20 mg/dL (5-40); Vitamin D,25 Hydroxy 47.7 ng/mL (30-100); cholesterol:hdl ratio screen 3.37
== END | disposition home or self-care (01) ==
LOC: LAB 08:41
PROVIDERS: PCP Family Medicine; Referring Provider Family Medicine; Visit Provider Family Medicine
DX: M06.9 Rheumatoid arthritis, unspecified (principal); M81.0 Age-related osteoporosis without current pathological fracture; E78.5 Hyperlipidemia, unspecified
CPT/HCPCS: 36415; 80053; 80061; 82306; 85025

== ENCOUNTER → 2025-09-06 | Outpatient (CLI) | payer MEDICARE, OTHER, SELFPAY ==
--- NOTE | 2025-09-06 12:56 | BI_ITS ---
EXAM: BI/SCRN MAMM (CAD)W/RADHA BILAT
--- NOTE | 2025-09-06 13:00 | BD_ITS ---
PROCEDURE: BD/Dexa Bone Density Study
== END | disposition home or self-care (01) ==
LOC: OPBI 12:54
PROVIDERS: PCP Family Medicine; Referring Provider Family Medicine; Visit Provider Family Medicine
DX: Z12.31 Encounter for screening mammogram for malignant neoplasm of breast (principal); Z78.0 Asymptomatic menopausal state; M81.0 Age-related osteoporosis without current pathological fracture
CPT/HCPCS: 77063; 77067; 77080